=== PATIENT | female | born 1970 | race Caucasian/White ===

== ENCOUNTER 2017-11-18 00:57 | Observation (INO) | END 2017-11-18 15:04 | disposition home or self-care (01) ==

== ENCOUNTER 2019-02-12 10:30 | Emergency (ER) | payer SELFPAY ==
[~2019-02-12] VITALS: Ht 165.1 cm; Wt 79.5 kg
[~2019-02-12 10:30] MED LIST: FER325 PO; METF500T24 PO
[2019-02-12 10:34] VITALS: BP 141/78; PULSE 83; RESP 18; Ht 165.1 cm; Wt 79.5 kg
[2019-02-12] MEDS ORDERED: LIDOCAINE 1% (MPF) 5 ML VIAL INJ ONE (11:30)
[2019-02-12] MEDS ORDERED: CEFTRIAXONE 2 GM INJ IM ONE (11:30)
[2019-02-12] MEDS ORDERED: AMOX1TAB10 PO (11:32)
--- NOTE | 2019-02-12 17:01 | ERD ---
ER Documentation Chief Complaint Chief Complaint bit by dog left big toe area, redness swelling noted HPI 49-year-old female presents with complaint of dog bite to her left first toe area. States that she got bit yesterday by her own dog who is up-to-date on her vacs on its vaccines. She also states that she is up-to-date on her on vaccines as well. States that there is been some redness and swelling in the area. Denies any numbness, fevers, chills, impaired range of motion. ROS All systems reviewed and are negative except as per history of present illness. Medications Home Meds Active Scripts Amoxicillin/Potassium Clav (Amox-Clav 875-125 mg Tablet) 875-125 mg Tab, 1 TAB PO BID for 10 Days, #20 TAB Prov:MIGUEL JARVIS 02/12/19 Ferrous Sulfate* (Ferrous Sulfate*) 325 Mg Tabec, 325 MG PO BID, #60 TAB Prov:AYANNA CAMACHO NP 11/18/17 Reported Medications Metformin Hcl* (Metformin Hcl*) 500 Mg Tablet, 500 MG PO WITH BREAKFAST DINNE, #60 TAB 11/17/17 Allergies Allergies: Coded Allergies: No Known Allergy (Unverified , 11/17/17) PMhx/Soc History of Surgery: Yes () Anesthesia Reaction: No Hx Neurological Disorder: No Hx Respiratory Disorders: No Hx Cardiac Disorders: No Hx Psychiatric Problems: No Hx Miscellaneous Medical Probl: Yes (DM) Hx Alcohol Use: No Hx Substance Use: No Hx Tobacco Use: Yes Smoking Status: Current every day smoker FmHx Family History: No diabetes, No coronary disease, No other Physical Exam Vitals Vital Signs Date Temp Pulse Resp B/P (MAP) Pulse Ox O2 O2 Flow FiO2 Time Delivery Rate 02/12/19 98.2 83 18 141/78 97 10:34 (99) Physical Exam Const: No acute distress Head: Atraumatic Eyes: Normal Conjunctiva ENT: Normal External Ears, Nose and Mouth. Neck: Full range of motion. No meningismus. Resp: Clear to auscultation bilaterally Cardio: Regular rate and rhythm, no murmurs Abd: Soft, non tender, non distended. Normal bowel sounds Skin: Mild edema and erythema noted over the base of the first left big toe. There is no fluctuance or tenderness palpation. There are no retained foreign bodies noted. There is no bleeding or signs of discharge. Back: No midline or flank tenderness Ext: No cyanosis, or edema Neur: Awake and alert Psych: Normal Mood and Affect Results 24 hrs Current Medications Medications Dose Sig/Daniella Start Time Status Last (Trade) Ordered Route PRN Stop Time Admin Dose Reason Admin Ceftriaxone 2 gm ONCE ONCE 02/12/19 DC 02/12/19 Sodium IM 11:30 02/12/19 11:57 (Rocephin) 11:31 Lidocaine 5 ml ONCE ONCE 02/12/19 DC 02/12/19 (Xylocaine INJ 11:30 02/12/19 11:58 1% (Mpf)) 11:31 Procedures/MDM MDM: Patient's presentation consistent with dog bite with possible infection. Patient was given Ancef in the ER and discharged on Augmentin. This time of low suspicion for rabies, acute space infection, sepsis, retained foreign bodies, lymphangitis, or any other emergent condition. At this time, patient is stable for discharge and outpatient management. I have instructed the patient to follow-up with his/her primary care physician in 1-2 days. I have discussed with the patient the possibility of needing to see a specialist for further workup and imaging studies if symptoms persist. I have instructed the patient to promptly return to the ER for any new or worsening symptoms including but not limited to increased pain, fever, nausea, vomiting, weakness or LOC. The patient and/or family expressed understanding of and agreement with this plan. All questions were answered. Home care instructions were provided. DISCLAIMER: Inadvertent spelling and grammatical errors are likely due to EHR/dictation software use and do not reflect on the overall quality of patient care. Also, please note that the electronic time recorded on this note does not necessarily reflect the actual time of the patient encounter. Departure Diagnosis: Primary Impression: Bite by animal Condition: Stable Patient Instructions: Dog Bite Referrals: [facility] (PCP) Additional Instructions: FOLLOW UP WITH YOUR PRIMARY CARE PHYSICIAN TOMORROW.Return to this facility if you are not improving as expected. MIGUEL JARVIS Feb 12, 2019 17:01
== END 2019-02-12 12:32 | disposition home or self-care (01) ==
LOC: FTE 10:30
DX: S91.152A Open bite of left great toe without damage to nail, initial encounter (principal); E11.9 Type 2 diabetes mellitus without complications; F17.210 Nicotine dependence, cigarettes, uncomplicated; W54.0XXA Bitten by dog, initial encounter; Y92.9 Unspecified place or not applicable; Z79.84 Long term (current) use of oral hypoglycemic drugs
CPT/HCPCS: 96372